=== PATIENT | female | born 1945 | race Caucasian/White ===

== ENCOUNTER 2017-01-20 15:38 | Emergency (ER) | payer MEDICARE, OTHER | END 2017-01-20 17:29 | disposition home or self-care (01) | LOC: ER1 15:38 | DX: S39.012A Strain of muscle, fascia and tendon of lower back, initial encounter (principal); S83.92XA Sprain of unspecified site of left knee, initial encounter; E11.9 Type 2 diabetes mellitus without complications; F17.210 Nicotine dependence, cigarettes, uncomplicated; W01.0XXA Fall on same level from slipping, tripping and stumbling without subsequent striking against object, initial encounter; Z86.73 Personal history of transient ischemic attack (TIA), and cerebral infarction without residual deficits | CPT/HCPCS: 72100; 73564; 99283 ==

== ENCOUNTER 2022-05-15 13:11 | Emergency (ER) | payer MEDICARE, OTHER ==
[2022-05-15 14:02] LABS: HEMOGLOBIN 14.4 gm/dl (12.3-15.3); RED BLOOD COUNT 4.79 M/UL (4.00-5.10); WHITE BLOOD COUNT 9.2 K/UL (4.5-11.0)
[2022-05-15 14:24] LABS: BUN/CREATININE RATIO 20 (0-10)
== END 2022-05-15 17:40 | disposition home or self-care (01) ==
LOC: ER1 13:11
PROVIDERS: Student in an Organized Health Care Education/Training Program
DX: K57.32 Diverticulitis of large intestine without perforation or abscess without bleeding (principal); E78.5 Hyperlipidemia, unspecified; I10 Essential (primary) hypertension; Z90.89 Acquired absence of other organs; Z90.710 Acquired absence of both cervix and uterus; Z88.0 Allergy status to penicillin; Z87.891 Personal history of nicotine dependence; Z20.822 Contact with and (suspected) exposure to COVID-19
CPT/HCPCS: 80053; 81001; 83605; 83690; 85025; 99284; Q9967; U0002